=== PATIENT | male | born 1970 | race Caucasian/White ===

== ENCOUNTER 2018-08-30 19:56 | Emergency (ER) | payer OTHER ==
--- NOTE | 2018-08-30 20:36 | ED ---
Allergic Reaction/Systemic - HPI Summary HPI Summary: This patient is a 47 year old male presenting to [facility] with a chief complaint of allergic reaction minutes [employer]. He states he was at a restaurant when he broke out in urticaria diffusely and states he then felt difficulty breathing. He said he had a padmini sandwich and greens. He took 50 mg Benadryl when he left the restaurant. He says there were seasoned nuts but never had an allergic reaction to him before. His only known allergy is to seafood. He says he does not know if the difficulty breathing was apart of the reaction or due to anxiety. He is not having difficulty at this time after taking the Benadryl. - History of Current Complaint Chief Complaint: EDAllergicReaction Time Seen by Provider: 08/30/18 20:30 Hx Obtained From: Patient Onset/Duration: Gradual Onset, Started hours ago Timing: Constant Pain Intensity: 0 Character: Pruritus, Hives Associated Signs And Symptoms: Positive: Difficulty Breathing - Allergies/Home Medications Allergies/Adverse Reactions: Allergies Allergy/AdvReac Type Severity Reaction Status Date / Time seafood Allergy Unknown Uncoded 08/30/18 20:05 Reaction Details PMH/Surg Hx/FS Hx/Imm Hx Cardiovascular History: Reports: Hx Hypertension - MEDS Respiratory History: Denies: Other Respiratory Problems/Disorders Infectious Disease History: No Infectious Disease History: Denies: Traveled Outside the [place] in Last 30 Days - Family History Known Family History: Positive: Other - Father allergic reaction to bee venom and macadamia nuts. Negative: Seizure Disorder - Social History Lives: With Family Hx Substance Use: No Hx Tobacco Use: No Review of Systems Positive: Shortness Of Breath Positive: Rash All Other Systems Reviewed And Are Negative: Yes Physical Exam - Summary Physical Exam Summary: Appearance: Well-appearing, Well-nourished, lying in bed comfortably Skin: Warm, dry, Urticaria on diffuse trunk, back and proximal upper and lower extremities. Eyes: sclera anicteric, no conjunctival pallor ENT: mucous membranes moist, pharynx appears normal Neck: Supple, nontender Respiratory: Clear to auscultation, no signs of respiratory distress Cardiovascular: Normal S1, S2. No murmurs. Normal distal pulses in tibial and radial bilaterally. Abdomen: Soft, nontender, normal active bowel sounds present Musculoskeletal: Normal, Strength/ROM Intact Neurological: A&Ox3, awake and alert, mentation is normal, speech is fluent and appropriate Psychiatric: affect is normal, does not appear anxious or depressed Triage Information Reviewed: Yes Vital Signs On Initial Exam: Initial Vitals Temp Pulse Resp BP Pulse Ox 98.9 F 70 22 157/93 97 08/30/18 20:00 08/30/18 20:00 08/30/18 20:00 08/30/18 20:00 08/30/18 20:00 Vital Signs Reviewed: Yes Diagnostics - Vital Signs Vital Signs Temp Pulse Resp BP Pulse Ox 08/30/18 20:00 98.9 F 70 22 157/93 97 - Laboratory Lab Statement: Any lab studies that have been ordered have been reviewed, and results considered in the medical decision making process. Allergic Reaction Course/Dx - Course Course Of Treatment: This patient is a 47 year old male presenting to [facility] with a chief complaint of allergic reaction an hour [employer]. The patient took 50 mg Benadryl [employer] and was given epinephrine in the ED. Physical exam was remarkable for Urticaria on the diffuse trunk, back, upper extremities, and lower extremities. A plan for discharge was discussed with the patient and he was agreeable with this plan. - Diagnoses Provider Diagnoses: Allergic reaction, Urticaria Discharge - Sign-Out/Discharge Documenting (check all that apply): Patient Departure - Discharge Patient Received Moderate/Deep Sedation with Procedure: No - Discharge Plan Condition: Good Disposition: HOME Prescriptions: EPINEPHrine [Epipen 2-Conrado] 0.3 mg IM ONCE PRN #1 inj PRN Reason: Allergy Symptoms Patient Education Materials: Urticaria (ED) Referrals: Clyde Chavez, [employer] [Primary Care Provider] - Additional Instructions: Urticaria tend to wax and wane over the course of several days before the reaction kwan itself out, so stay on a regular dose of antihistamine of your choice through the weekend at least. If it gets bad despite that we can always see you back for another dose of epinephrine, but usually the antihistamines work pretty well. I have prescribed epinephrine autoinjector since sometimes the next reaction can be worse and you would need something on hand to treat yourself with before getting to an ER. Also, if you start getting other symptoms besides the skin eruption we should see you back here. - Billing Disposition and Condition Condition: GOOD Disposition: Home - Attestation Statements Document Initiated by Scribe: Yes Documenting Scribe: Osmel Higginbotham Provider For Whom Alanis is Documenting (Include Credential): Hank Simon MD Scribe Attestation: I, Osmel Higginbotham, scribed for Hank Simon MD on 08/31/18 at 0415. Scribe Documentation Reviewed: Yes Provider Attestation: The documentation as recorded by the Osmel espinoza accurately reflects the service I personally performed and the decisions made by me, Hank Simon MD Status of Scribe Document: Viewed
--- OUTSIDE RECORDS SUMMARY | 2018-08-30 20:36 | XMS REPORT | Continuity of Care Document ---
:1970 External Reference #:[id number] Author Name ABEL Roy Address [address] [place] [address] Care Team Providers Name Role Phone ABEL Roy Care Team Information Band Lining Bander Unavailable Payers Date Identification Numbers Payment Provider Subscriber Effective: 2012 Policy Number: [id number] [employer] Camilla Padilla PayID: [id number] [address] [place] [address] Problems Active Problems Provider Date Essential hypertension Edwige Villalobos M.D. Onset: 11/21/2010 Pure hypercholesterolemia Edwige Villalobos M.D. Onset: 11/21/2010 Overweight Edwige Villalobos M.D. 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 Working Tobacco Use Start: Unknown Never Smoked Cigarettes ETOH Use Currently consumes alcohol drinks beer or wine most days of the week Tobacco Use Start: Unknown Patient has never smoked Recreational Drug Use Denies Drug Use Enjoy Exercising Enjoys exercising hikes, rows Allergies, Adverse Reactions, Alerts Active Allergies Reaction Severity Comments Date Demerol tachycardia Moderate 11/21/2010 Medications Active Medications SIG Qnty Indications Ordering Date Provider Naproxen one tab by mouth 60tabs M76.62 Clyde REvan 10/04/2017 500mg twice daily with Storm, [employer] Tablets food for pain/inflammation Atorvastatin Calcium take one tablet by 90tabs E78.5 Clyde Patel 07/06/2016 mouth at bedtime Storm, [employer] 20mg Tablets for cholesterol Lisinopril 1 by mouth every 90tabs I10 Clyde REvan 04/08/2012 10mg day Storm, [employer] Tablets History Medications Benzonatate 1 by mouth three 30caps J06.9 Clyde REvan 07/19/2017 - 200mg times a day for Storm, [employer] 10/04/2017 Capsules cough Augmentin 1 by mouth twice a 20tabs J06.9 Svenjo REvan 07/19/2017 - 875-125mg day for infection Storm, [employer] 07/29/2017 Tablets Azithromycin take 2 tab by 6tabs J06.9 Ezra Sumner 05/29/2017 - 250mg mouth on day 1 III, [employer] 07/19/2017 Tablets followed by 1 tab by mouth daily for 4 additional days Cefpodoxime Take 2 tablets by 20tabs Rodger 02/08/2015 - Proxetil mouth 2 times per MD Ruchi 04/02/2015 200mg day for 10 days Tablets for infection Doxycycline Hyclate 1 by mouth twice a 20tabs L03.012 Clyde Patel 2014 - day for 10 days Storm, [employer] 02/07/2015 100mg Tablets for infection Cephalexin 1 tablet by mouth 20tabs L03.012 Ezra Sumner 01/26/2015 - 500mg twice daily for 10 III, [employer] 01/28/2015 Tablets days Atorvastatin take one tablet by 30tabs 272.0 Clyde Patel 03/30/2014 - Calcium mouth daily for Storm, [employer] 04/02/2015 20mg cholesterol Tablets Hydroxyzine HCL 1 po qid prn 40tabs 780.4 Clyde Patel 05/05/2013 - dizziness Storm, [employer] 03/30/2014 25mg Tablets Simvastatin take one po at hs 90tabs 272.0 Edwige StoryEvan 03/17/2013 - 20mg Rex Villalobos 03/30/2014 Tablets No Active Unknown 03/04/2012 - Medications 04/08/2012 Meloxicam 1 po qd 30tabs 719.47 Edwige Story. 11/21/2010 - 15mg Rex Villalobos 03/04/2012 Tablets Immunizations CPT Code Status Date Vaccine Lot # [id number] Given 07/06/2016 Tdap (Adacel) [id number] 80700 Given 02/01/2016 Influenza Virus Vaccine, Quadrivalent, 3 Yr > [id number] Quad, Preserv Free 22906 Given 04/02/2015 Influenza Virus Vaccine, Quadrivalent, 3 Yr > [id number] Quad, Preserv Free 99498 Given 03/17/2013 Flumist, Influenza Vaccine Quadrivalent, Live For [id number] Intranasal Use 06895 Given 11/21/2010 Influenza Vaccine-Preservative Free 3 Yrs And [id number] Above 99579 Given 03/08/2009 Td Age 7 to adult (Tenivac, Decavac, Mass [employer]) Vital Signs Date Vital Result Comment 08/02/2018 10:34am Weight 226.00 lb Weight 102.514 kg BP Systolic 110 mmHg BP Diastolic 80 mmHg Heart Rate 76 /min Body Temperature 98.8 F Respiratory Rate 16 /min 10/04/2017 9:34am Weight 219.00 lb Weight 99.338 kg BP Systolic 126 mmHg BP Diastolic 88 mmHg Heart Rate 72 /min Body Temperature 97.4 F Respiratory Rate 17 /min O2 % BldC Oximetry 98 % 07/24/2017 2:21pm Weight 216.50 lb Weight 98.204 kg BP Systolic 120 mmHg BP Diastolic 88 mmHg Heart Rate 56 /min Body Temperature 98.4 F Respiratory Rate 12 /min Height 72 inches 6'0" BMI (Body Mass Index) 29.4 kg/m2 Waist Circumference 40" 07/19/2017 11:35am Weight 221.00 lb Weight 100.246 kg BP Systolic 130 mmHg BP Diastolic 88 mmHg Heart Rate 76 /min Body Temperature 98.5 F Respiratory Rate 16 /min O2 % BldC Oximetry 97 % 05/29/2017 9:39am Weight 233.00 lb Weight 105.689 kg BP Systolic 130 mmHg BP Diastolic 80 mmHg Heart Rate 64 /min Body Temperature 98.3 F Respiratory Rate 16 /min O2 % BldC Oximetry 98 % 07/06/2016 9:38am Weight 222.00 lb Weight 100.699 kg BP Systolic 122 mmHg BP Diastolic 78 mmHg Heart Rate 68 /min Body Temperature 98.0 F Respiratory Rate 16 /min Height 72 inches 6'0" BMI (Body Mass Index) 30.1 kg/m2 02/01/2016 4:06pm Weight 223.00 lb Weight 101.153 kg BP Systolic 128 mmHg BP Diastolic 76 mmHg Heart Rate 68 /min Body Temperature 97.2 F Respiratory Rate 16 /min O2 % BldC Oximetry 98 % 04/02/2015 8:54am Weight 219.00 lb Weight 99.338 kg BP Systolic 116 mmHg BP Diastolic 78 mmHg Heart Rate 66 /min Height 72.5 inches 6'0.50" BMI (Body Mass Index) 29.3 kg/m2 02/08/2015 3:57pm Weight 217.00 lb Weight 98.431 kg BP Systolic 110 mmHg BP Diastolic 62 mmHg Heart Rate 68 /min Body Temperature 97.7 F 01/28/2015 11:22am Weight 220.00 lb Weight 99.792 kg BP Systolic 120 mmHg BP Diastolic 70 mmHg Heart Rate 68 /min Body Temperature 98.4 F 01/26/2015 11:11am Weight 218.00 lb Weight 98.885 kg BP Systolic 120 mmHg BP Diastolic 80 mmHg Heart Rate 69 /min Body Temperature 98.3 F 06/22/2014 10:08am Weight 221.00 lb Weight 100.246 kg BP Systolic 118 mmHg BP Diastolic 70 mmHg Heart Rate 60 /min 03/30/2014 1:26pm Weight 222.00 lb Weight 100.699 kg BP Systolic 120 mmHg BP Diastolic 74 mmHg Heart Rate 62 /min Height 72 inches 6'0" BMI (Body Mass Index) 30.1 kg/m2 06/16/2013 9:46am Weight 221.00 lb Weight 100.246 kg BP Systolic 120 mmHg BP Diastolic 80 mmHg Heart Rate 80 /min 05/05/2013 3:15pm Weight 216.00 lb Weight 97.978 kg BP Systolic 140 mmHg BP Diastolic 78 mmHg Heart Rate 68 /min 03/17/2013 8:42am Weight 215.00 lb Weight 97.524 kg BP Systolic 120 mmHg BP Diastolic 74 mmHg Heart Rate 68 /min Height 71.75 inches 5'11.75" BMI (Body Mass Index) 29.4 kg/m2 07/29/2012 4:15pm Weight 222.00 lb Weight 100.699 kg BP Systolic 138 mmHg BP Diastolic 82 mmHg Heart Rate 88 /min Body Temperature 97.3 F 07/08/2012 9:41am Weight 220.00 lb Weight 99.792 kg BP Systolic 124 mmHg BP Diastolic 80 mmHg Heart Rate 84 /min 04/08/2012 9:23am Weight 222.00 lb Weight 100.699 kg BP Systolic 140 mmHg BP Diastolic 82 mmHg Heart Rate 80 /min 03/04/2012 9:34am BP Systolic 140 mmHg BP Diastolic 102 mmHg 03/04/2012 8:21am Weight 225.00 lb Weight 102.060 kg BP Systolic 120 mmHg BP Diastolic 82 mmHg Heart Rate 72 /min Height 72.5 inches 6'0.50" BMI (Body Mass Index) 30.1 kg/m2 Waist Circumference 41.25 11/21/2010 8:12am Weight 215.00 lb Weight 97.524 kg BP Systolic 132 mmHg BP Diastolic 78 mmHg Heart Rate 88 /min Height 72.25 inches 6'0.25" BMI (Body Mass Index) 29.0 kg/m2 Results Test Date Facility Test Result H/L Range Note CBC Auto Diff 08/02/2018 [facility] White Blood 5.2 10^3/uL N 3.5-10.8 [phone] Count Red Blood Count 4.59 10^6/uL N 4.18-5.48 Hemoglobin 14.5 g/dL N 14.0-18.0 Hematocrit 43 % N 42-52 Mean Corpuscular Volume 94 fL N 80-94 Mean Corpuscular Hemoglobin 32 pg High 27-31 Mean Corpuscular HGB Conc 34 g/dL N 31-36 Red Cell Distribution Width 13 % N 10-15 Platelet Count 248 10^3/uL N 150-450 Mean Platelet Volume 9.3 fL N 7.4-10.4 Abs Neutrophils 2.9 10^3/uL N 1.5-7.7 Abs Lymphocytes 1.6 10^3/uL N 1.0-4.8 Abs Monocytes 0.6 10^3/uL N 0-0.8 Abs Eosinophils 0.2 10^3/uL N 0-0.6 Abs Basophils 0.0 10^3/uL N 0-0.2 Abs Nucleated RBC 0.0 10^3/uL Granulocyte % 55.2 % Lymphocyte % 30.0 % Monocyte % 10.7 % Eosinophil % 3.6 % Basophil % 0.5 % Nucleated Red Blood Cells % 0.1 Comp Metabolic Panel 08/02/2018 [facility] Sodium 140 mmol/L N 135-145 [phone] Potassium 4.4 mmol/L N 3.5-5.0 Chloride 106 mmol/L N 101-111 Co2 Carbon Dioxide 29 mmol/L N 22-32 Anion Gap 5 mmol/L N 2-11 Glucose 96 mg/dL N 70-100 Blood Urea Nitrogen 15 mg/dL N 6-24 Creatinine 1.05 mg/dL N 0.67-1.17 BUN/Creatinine Ratio 14.3 N 8-20 Calcium 9.7 mg/dL N 8.6-10.3 Total Protein 6.9 g/dL N 6.4-8.9 Albumin 4.4 g/dL N 3.2-5.2 Globulin 2.5 g/dL N 2-4 Albumin/Globulin Ratio 1.8 N 1-3 Total Bilirubin 0.40 mg/dL N 0.2-1.0 Alkaline Phosphatase 51 U/L N 34-104 Alt 29 U/L N 7-52 Ast 19 U/L N 13-39 Egfr Non- 76.0 >60 Egfr 92.0 >60 1 Laboratory test 08/02/2018 [facility] TSH (Thyroid 2.13 mcIU/mL N 0.34-5.60 2 finding [phone] Stim Horm) Lyme Disease AB 08/02/2018 [facility] IgG Immunoblot Negative Negative Immunoblot WB [phone] IgG detected against p39,p18 kDa IgM Immunoblot Negative Negative IgM detected against None kDa Lyme Disease Interpretation See Comment 3 Tick-Borne Panel 08/02/2018 [facility] Babesia Negative Negative PCR Blood [phone] microti PCR Babesia ducani Negative Negative Babesia divergens/Mo-1 Negative Negative 4 Anaplasma phagocytophilum Negative Negative Ehrlichia chaffeensis Negative Negative Ehrlichia ewingii/canis Negative Negative Ehrlichia muris eauclairensis Negative Negative 5 B. miyamotoi PCR, B Negative Negative 6 Comp Metabolic 06/29/2017 [facility] Sodium 138 mmol/ L Low 139-145 Panel [phone] Potassium 4.3 mmol/L N 3.5-5.0 Chloride 104 mmol/L N 101-111 Co2 Carbon Dioxide 27 mmol/L N 22-32 Anion Gap 7 mmol/L N 2-11 Glucose 90 mg/dL N 70-100 Blood Urea Nitrogen 18 mg/dL N 6-24 Creatinine 1.15 mg/dL N 0.67-1.17 BUN/Creatinine Ratio 15.7 N 8-20 Calcium 9.5 mg/dL N 8.6-10.3 Total Protein 6.8 g/dL N 6.4-8.9 Albumin 4.5 g/dL N 3.2-5.2 Globulin 2.3 g/dL N 2-4 Albumin/Globulin Ratio 2.0 N 1-3 Total Bilirubin 0.50 mg/dL N 0.2-1.0 Alkaline Phosphatase 43 U/L N 34-104 Alt 20 U/L N 7-52 Ast 17 U/L N 13-39 Egfr Non- 68.8 >60 Egfr 88.4 >60 7 Lipid Profile 06/29/2017 [facility] Triglycerides 138 mg/dL 8 (Trig/Chol/HDL) [phone] Cholesterol 263 mg/dL 9 HDL Cholesterol 49.2 mg/dL 10 LDL Cholesterol 186 mg/dL 11 Laboratory test 06/29/2017 [facility] TSH (Thyroid 2.70 mcIU/mL N 0.34-5.60 12 finding [phone] Stim Horm) PSA Screening 0.569 ng/mL N 0-4.000 13 Hemoglobin A1c (Glyco HGB) 5.2 % N 4.0-5.6 14 CBC Auto Diff 06/29/2017 [facility] White Blood 4.8 10^3/uL N 3.5-10.8 [phone] Count Red Blood Count 4.43 10^6/uL N 4.0-5.4 Hemoglobin 14.4 g/dL N 14.0-18.0 Hematocrit 42 % N 42-52 Mean Corpuscular Volume 95 fL High 80-94 Mean Corpuscular Hemoglobin 33 pg High 27-31 Mean Corpuscular HGB Conc 34 g/dL N 31-36 Red Cell Distribution Width 13 % N 10.5-15 Platelet Count 226 10^3/uL N 150-450 Mean Platelet Volume 9.6 um3 N 7.4-10.4 Abs Neutrophils 2.5 10^3/uL N 1.5-7.7 Abs Lymphocytes 1.6 10^3/uL N 1.0-4.8 Abs Monocytes 0.5 10^3/uL N 0-0.8 Abs Eosinophils 0.2 10^3/uL N 0-0.6 Abs Basophils 0 10^3/uL N 0-0.2 Abs Nucleated RBC 0 10^3/uL Granulocyte % 52.5 % N 38-83 Lymphocyte % 32.3 % N 25-47 Monocyte % 11.3 % High 0-7 Eosinophil % 3.3 % N 0-6 Basophil % 0.6 % N 0-2 Nucleated Red Blood Cells % 0.1 Statin 08/17/2016 [facility] Ast (Sgot) 20 U/L N 13 -39 15 [phone] Alt 28 U/L N 7- 16 Lipid Profile 08/17/2016 [facility] Triglycerides 115 mg/dL N 17 (Trig/Chol/HDL) [phone] Cholesterol 178 mg/dL N 18 HDL Cholesterol 48.2 mg/dL N 19 LDL Cholesterol 107 mg/dL N 20 Statin 06/30/2016 [facility] Ast (Sgot) 14 U/L N 13 -39 21 [phone] Alt 19 U/L N - 22 Lipid Profile 06/30/2016 [facility] Triglycerides 122 mg/dL N 23 (Trig/Chol/HDL) [phone] Cholesterol 241 mg/dL N 24 HDL Cholesterol 45.4 mg/dL N 25 LDL Cholesterol 171 mg/dL N 26 Lipid Profile 03/26/2015 [facility] Triglycerides 119 mg/dL N 27 (Trig/Chol/HDL) [phone] Cholesterol 243 mg/dL N 28 HDL Cholesterol 50.9 mg/dL N 29 LDL Cholesterol 168 mg/dL N 30 Laboratory test 03/26/2015 [facility] TSH (Thyroid 2.84 ?IU/mL N 0.34-5.60 finding [phone] Stim Horm) Comp Metabolic 03/26/2015 [facility] Sodium 137 mmol/ L N 133-145 Panel [phone] Potassium 4.2 mmol/L N 3.5-5.0 Chloride 103 mmol/L N 101-111 Co2 Carbon Dioxide 29 mmol/L N 22-32 Anion Gap 5 mmol/L N 2-11 Glucose 86 mg/dL N 70-100 Blood Urea Nitrogen 14 mg/dL N 6-24 Creatinine 1.00 mg/dL N 0.67-1.17 BUN/Creatinine Ratio 14.0 N 8-20 Calcium 9.3 mg/dL N 8.6-10.3 Total Protein 6.7 g/dL N 6.4-8.9 Albumin 4.4 g/dL N 3.2-5.2 Globulin 2.3 g/dL N 2-4 Albumin/Globulin Ratio 1.9 N 1-3 Total Bilirubin 0.60 mg/dL N 0.2-1.0 Alkaline Phosphatase 43 U/L N 34-104 Alt 24 U/L N 7-52 Ast 17 U/L N 13-39 Egfr Non- 81.6 N >60 Egfr 104.9 N >60 31 CBC Auto Diff 03/26/2015 [facility] White Blood 4.6 10^3/uL N 3.5-10.8 [phone] Count Red Blood Count 4.61 10^6/uL N 4.0-5.4 Hemoglobin 14.7 g/dL N 14.0-18.0 Hematocrit 44 % N 42-52 Mean Corpuscular Volume 96 fL High 80-94 Mean Corpuscular Hemoglobin 32 pg High 27-31 Mean Corpuscular HGB Conc 33 g/dL N 31-36 Red Cell Distribution Width 13 % N 10.5-15 Platelet Count 236 10^3/uL N 150-450 Mean Platelet Volume 10 um3 N 7.4-10.4 Abs Neutrophils 2.3 10^3/uL N 1.5-7.7 Abs Lymphocytes 1.7 10^3/uL N 1.0-4.8 Abs Monocytes 0.5 10^3/uL N 0-0.8 Abs Eosinophils 0.1 10^3/uL N 0-0.6 Abs Basophils 0 10^3/uL N 0-0.2 Abs Nucleated RBC 0 10^3/uL N Granulocyte % 48.8 % N 38-83 Lymphocyte % 36.7 % N 25-47 Monocyte % 10.8 % High 1-9 Eosinophil % 3.1 % N 0-6 Basophil % 0.6 % N 0-2 Nucleated Red Blood Cells % 0.1 N Laboratory test 01/26/2015 [facility] Wound SEE RESULT 32 finding [phone] Culture/Sensi BELOW Statin 06/22/2014 [facility] Ast 18 U/L N 13-3 33 , 34 [phone] Alt 26 U/L N 7-52 35 Lipid Profile 06/22/2014 [facility] Triglycerides 102 mg/dL N 36 (Trig/Chol/HDL) [phone] Cholesterol 167 mg/dL N 37 HDL Cholesterol 34.0 mg/dL N 38 LDL Cholesterol 113 mg/dL N 39 CBC Auto Diff 03/24/2014 [facility] White Blood 5.6 10^3/uL N 4.8-10.8 [phone] Count Red Blood Count 4.37 10^6/uL N 4.0-5.4 Hemoglobin 14.3 g/dL N 14.0-18.0 Hematocrit 42 % N 42-52 Mean Corpuscular Volume 97 fL High 80-94 Mean Corpuscular Hemoglobin 33 pg High 27-31 Mean Corpuscular HGB Conc 34 g/dL N 31-36 Red Cell Distribution Width 14 % N 10.5-15 Platelet Count 245 10^3/uL N 150-450 Mean Platelet Volume 10 um3 N 7.4-10.4 Abs Neutrophils 3.0 10^3/uL N 1.5-7.7 Abs Lymphocytes 1.8 10^3/uL N 1.0-4.8 Abs Monocytes 0.6 10^3/uL N 0-0.8 Abs Eosinophils 0.1 10^3/uL N 0-0.6 Abs Basophils 0 10^3/uL N 0-0.2 Abs Nucleated RBC 0 10^3/uL N Granulocyte % 53.9 % N 38-83 Lymphocyte % 31.7 % N 25-47 Monocyte % 11.6 % High 1-9 Eosinophil % 2.3 % N 0-6 Basophil % 0.5 % N 0-2 Nucleated Red Blood Cells % 0.1 N Comp Metabolic Panel 03/24/2014 [facility] Sodium 138 mmol/L N 133-145 [phone] Potassium 4.1 mmol/L N 3.5-5.0 Chloride 103 mmol/L N 101-111 Co2 Carbon Dioxide 30 mmol/L N 22-32 Anion Gap 5 mmol/L N 2-11 Glucose 87 mg/dL N 70-100 Blood Urea Nitrogen 14 mg/dL N 6-24 Creatinine 1.02 mg/dL N 0.67-1.17 BUN/Creatinine Ratio 13.7 N 8-20 Calcium 9.6 mg/dL N 8.6-10.3 Total Protein 6.6 g/dL N 6.4-8.9 Albumin 4.3 g/dL N 3.2-5.2 Globulin 2.3 g/dL N 2-4 Albumin/Globulin Ratio 1.9 N 1-3 Total Bilirubin 0.50 mg/dL N 0.2-1.0 Alkaline Phosphatase 48 U/L N 34-104 Alt 18 U/L N 7-52 Ast 15 U/L N 13-39 Egfr Non- 80.1 N >60 Egfr 103.0 N >60 40 Lipid Profile 03/24/2014 [facility] Triglycerides 125 mg/dL N 41 (Trig/Chol/HDL) [phone] Cholesterol 259 mg/dL N 42 HDL Cholesterol 46.4 mg/dL N 43 LDL Cholesterol 188 mg/dL N 44 Laboratory test 03/24/2014 [facility] TSH (Thyroid 3.33 N 0.34-5.60 finding [phone] Stimulating IU/mL Horm) Statin 06/13/2013 [facility] Ast 19 U/L 13-39 45 [phone] Alt 25 U/L 7-52 46 Lipid Profile 06/13/2013 [facility] Triglycerides 109 mg/dL 47 (Trig/Chol/HDL) [phone] Cholesterol 204 mg/dL 48 HDL Cholesterol 40.3 mg/dL 49 LDL Cholesterol 142 mg/dL 50 Laboratory test 03/14/2013 [facility] TSH (Thyroid 3.11 0.34-5.60 finding [phone] Stimulating miu/mL Horm) Hemoglobin A1c 5.3 % Less than 6.0 51 Basic Metabolic 03/14/2013 [facility] Sodium 139 mmol /L 133-145 Panel [phone] Potassium 4.1 mmol/L 3.5-5.0 Chloride 106 mmol/L 101-111 Co2 Carbon Dioxide 28.0 mmol/L 22-32 Anion Gap 5.0 mmol/L 2-11 Glucose 82 mg/dL 70-100 Blood Urea Nitrogen 12 mg/dL 6-24 Creatinine 0.90 mg/dL 0.50-1.40 BUN/Creatinine Ratio 13.3 8-20 Calcium 9.4 mg/dL 8.1-9.9 Egfr Non- 93.0 >60 Egfr 119.6 >60 52 Lipid Profile 03/14/2013 [facility] Triglycerides 333 mg/dL High 40-200 (Trig/Chol/HDL) [phone] Cholesterol 288 mg/dL High Less than 200 HDL Cholesterol 37 mg/dL Low 40-60 53 Cholesterol/HDL Ratio 7.8 Average High 1-4.44 LDL Cholesterol 184.4 High Less Than 100 54 Liver Function 03/14/2013 [facility] Total Protein 6.4 g/dL 6.2-8.1 Panel [phone] Albumin 4.2 g/dL 3.6-5.4 Globulin 2.2 g/dL 2-4 Albumin/Globulin Ratio 1.9 1-3 Total Bilirubin 0.4 mg/dL 0.4-1.5 Direct Bilirubin < 0.1 mg/dL Low 0.1-0.5 Indirect Bilirubin (SEE NOTE) mg/dL 0.3-1.0 55 Alkaline Phosphatase 55 U/L 30-110 Alt 28 U/L 14-54 Ast 19 U/L 12-42 Lipid Profile 07/08/2012 [facility] Triglycerides 77 mg/dL 40-200 (Trig/Chol/HDL) [phone] Cholesterol 222 mg/dL High Less than 200 HDL Cholesterol 46 mg/dL 40-60 56 Cholesterol/HDL Ratio 4.8 Average High 1-4.44 LDL Cholesterol 160.6 mg/dL High Less Than 100 57 Liver Function 07/08/2012 [facility] Total Protein 6.0 g/dL Low 6.2-8.1 Panel [phone] Albumin 4.1 g/dL 3.6-5.4 Globulin 1.9 g/dL Low 2-4 Albumin/Globulin Ratio 2.2 1-3 Total Bilirubin 0.6 mg/dL 0.4-1.5 Direct Bilirubin 0.1 mg/dL 0.1-0.5 Indirect Bilirubin 0.5 mg/dL 0.3-1.0 Alkaline Phosphatase 48 U/L 30-110 Alt 25 U/L 14-54 Ast 20 U/L 12-42 CBC No Diff 02/26/2012 [facility] White Blood 4.3 10^ 3/uL Low 4.8-10.8 [phone] Count Red Blood Count 4.44 10^6/uL 4.0-5.4 Hemoglobin 14.7 g/dL 14.0-18.0 Hematocrit 43 % 42-52 Mean Corpuscular Volume 97 fL High 80-94 Mean Corpuscular Hemoglobin 33 pg High 27-31 Mean Corpuscular HGB Conc 34 g/dL 31-36 Red Cell Distribution Width 13 % 10.5-15 Platelet Count 219 10^3/uL 150-450 Mean Platelet Volume 10 um3 7.4-10.4 Laboratory test 02/26/2012 [facility] TSH (Thyroid 1.87 0.34-5.60 58 finding [phone] Stimulating miu/mL Horm) Hemoglobin A1c 5.4 % Less than 6.0 59 Liver Function 02/26/2012 [facility] Total Protein 6.0 g/dL Low 6.2-8.1 Panel [phone] Albumin 4.1 g/dL 3.6-5.4 Globulin 1.9 g/dL Low 2-4 Albumin/Globulin Ratio 2.2 1-3 Total Bilirubin 0.8 mg/dL 0.4-1.5 Direct Bilirubin 0.1 mg/dL 0.1-0.5 Indirect Bilirubin 0.7 mg/dL 0.3-1.0 Alkaline Phosphatase 44 U/L 30-110 Alt 24 U/L 14-54 Ast 20 U/L 12-42 Lipid Profile 02/26/2012 [facility] Triglycerides 198 mg/dL 40-200 (Trig/Chol/HDL) [phone] Cholesterol 266 mg/dL High Less than 200 HDL Cholesterol 45 mg/dL 40-60 60 Cholesterol/HDL Ratio 5.9 Average High 1-4.44 LDL Cholesterol 181.4 mg/dL High Less Than 100 61 Basic Metabolic 02/26/2012 [facility] Sodium 141 mmol /L 133-145 Panel [phone] Potassium 4.3 mmol/L 3.5-5.0 Chloride 108 mmol/L 101-111 Co2 Carbon Dioxide 27.0 mmol/L 22-32 Anion Gap 6.0 mmol/L 2-11 Glucose 95 mg/dL 70-100 Blood Urea Nitrogen 10 mg/dL 6-24 Creatinine 1.10 mg/dL 0.50-1.40 BUN/Creatinine Ratio 9.1 8-20 Calcium 9.5 mg/dL 8.1-9.9 Egfr Non- 74.1 >60 Egfr 95.3 >60 62 Liver Function 11/21/2010 [facility] Total Protein 7.0 GM/DL 6.2-8.1 Panel [phone] Albumin 4.6 GM/DL 3.6-5.4 Globulin 2.4 GM/DL 2-4 Albumin/Globulin Ratio 1.9 1-3 Bilirubin Total 0.7 mg/dL 0.4-1.5 63 Bilirubin Direct 0.1 mg/dL 0.1-0.5 Indirect Bilirubin 0.6 mg/dL 0.3-1.0 64 Alkaline Phosphatase 50 U/L 39-117 Alt (SGPT) 26 U/L 17-63 Ast (Sgot) 20 U/L 12-42 Basic Metabolic 11/21/2010 [facility] Sodium 141 mmol /L 135-145 Panel [phone] Potassium 4.5 mmol/L 3.5-5.0 Chloride 104 mmol/L 101-111 Co2 (Carbon Dioxide) 30.0 mmol/L 22-32 Anion Gap 7.0 mmol/L 2-11 65 Glucose 90 mg/dL 70-100 BUN 14 mg/dL 6-24 Creatinine 1.2 mg/dL 0.50-1.40 One Over Creatinine 0.83 BUN/Creatinine Ratio 12.7 8-20 Calcium 9.6 mg/dL 8.1-9.9 eGFR Non- 67.4 > 60 eGFR 86.7 > 60 66 Lipid Profile 11/21/2010 [facility] Triglyceride 102 mg/dL 40-200 (Trig/Chol/HDL) [phone] Cholesterol 253 mg/dL High Less Than 200 67 High Density Lipoprotein 47 mg/dL 40-60 68 Cholesterol/HDL Ratio 5.38 AVERAGE High 1-4.97 Low Density Lipoprotein 186 mg/dL High Less Than 100 69 1 Because ethnic data is not always readily available, this report includes an eGFR for both -Americans and non- Americans. The National Kidney Disease Education Program (NKDEP) does not endorse the use of the MDRD equation for patients that are not between the ages of 18 and 70, are , have extremes of body size, muscle mass, or nutritional status, or are non- or non-. According to the National Kidney Foundation, irrespective of diagnosis, the stage of the disease is based on the level of kidney function: Stage Description GFR(mL/min/1.73 m(2)) 1 Kidney damage with normal or decreased GFR 90 2 Kidney damage with mild decrease in GFR 60-89 3 Moderate decrease in GFR 30-59 4 Severe decrease in GFR 15-29 5 Kidney failure <15 (or dialysis) 2 [id number] 3 Specific serologic response to B. burgdorferi infection is not detected, but cannot rule out early infection during which low or undetectable antibody levels to B. burgdorferi may be present. If clinically indicated, a new serum specimen should be submitted in 7-14 days. ADDITIONAL INFORMATION Per CDC criteria, the Lyme IgG Immunoblot is interpreted as positive if IgG-class antibodies are detected to >=5 B. burgdorferi proteins, and the Lyme IgM Immunoblot is interpreted as positive if IgM-class antibodies are detected to >=2 B. burgdorferi proteins. Immunoblot patterns not meeting these criteria should not be interpreted as positive. Epitopes from certain B. burgdorferi proteins (e.g., p41) are conserved across other bacteria, which may lead to the detection of IgM- and/or IgG-class antibodies on the Lyme disease immunoblots in patients without Lyme disease. Immunoblot should only be ordered on specimens that are positive or equivocal by a FDA-licensed Lyme disease antibody screening test (e.g., EIA). Results of the Lyme IgM immunoblot should not be considered in patients with >=30 days of symptoms. Test Performed by: [facility] [address] [place] [address] 4 ADDITIONAL INFORMATION This test was developed and its performance characteristics determined by [facility] in a manner consistent with CLIA requirements. This test has not been cleared or approved by the U.S. Food and Drug Administration. 5 ADDITIONAL INFORMATION This test was developed and its performance characteristics determined by [facility] in a manner consistent with CLIA requirements. This test has not been cleared or approved by the U.S. Food and Drug Administration. 6 ADDITIONAL INFORMATION This test was developed and its performance characteristics determined by [facility] in a manner consistent with CLIA requirements. This test has not been cleared or approved by the U.S. Food and Drug Administration. Test Performed by: [facility] - [address] [address] 7 Because ethnic data is not always readily available, this report includes an eGFR for both -Americans and non- Americans. The National Kidney Disease Education Program (NKDEP) does not endorse the use of the MDRD equation for patients that are not between the ages of 18 and 70, are , have extremes of body size, muscle mass, or nutritional status, or are non- or non-. According to the National Kidney Foundation, irrespective of diagnosis, the stage of the disease is based on the level of kidney function: Stage Description GFR(mL/min/1.73 m(2)) 1 Kidney damage with normal or decreased GFR 90 2 Kidney damage with mild decrease in GFR 60-89 3 Moderate decrease in GFR 30-59 4 Severe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
[2018-08-30] MEDS ORDERED: LoraTADine TAB(NF) 10 MG TAB (AUTOSUB to CETIRIZINE) PO ONE (20:44)
[2018-08-30] MEDS ORDERED: EPINEPHRINE 1 MG/ML 1 ML VIAL IM ONE (20:44)
[2018-08-30 21:23] VITALS: BP 130/86
== END 2018-08-30 21:49 | disposition home or self-care (01) ==
LOC: ED 19:56
DX: T78.40XA Allergy, unspecified, initial encounter (principal); L50.9 Urticaria, unspecified; X58.XXXA Exposure to other specified factors, initial encounter; I10 Essential (primary) hypertension
CPT/HCPCS: 96372; 99282; A9270-GY